=== PATIENT | male | born 1955 | race Native Hawaiian/Other Pacific Islander ===

== ENCOUNTER 2023-05-07 11:59 | Outpatient (CLI) | payer OTHER ==
[2023-05-07 13:51] LABS: PLATELET COUNT 240 K/uL (142-355)
[2023-05-07 14:14] LABS: POTASSIUM 4.8 mmol/L (3.6-5.2)
== END 2023-05-07 19:24 | disposition home or self-care (01) ==
LOC: LAB 11:59
PROVIDERS: ATTEND Internal Medicine
DX: I10 Essential (primary) hypertension (principal)
CPT/HCPCS: 80053; 80061; 84439; 84443; 85027